=== PATIENT | male | born 1955 | race Caucasian/White ===

== ENCOUNTER 2020-12-31 05:43 | Outpatient (CLI) | payer MEDICARE ==
[~2020-12-31] VITALS: Ht 175.3 cm; Wt 106.7 kg
[2020-12-31] MEDS ORDERED: ROSU40TA23 PO (09:07)
[2020-12-31] MEDS ORDERED: METF-397 PO (09:07)
[2020-12-31] MEDS ORDERED: GLUC-235 PO (09:07)
[2020-12-31] MEDS ORDERED: LISI1TAB46 PO (09:07)
[2020-12-31] MEDS ORDERED: LEVO150C4 PO (09:07)
[2020-12-31] MEDS ORDERED: TMSL.4C PO (09:07)
[2020-12-31] MEDS ORDERED: NAPR-1067 PO (09:07)
[2020-12-31] MEDS ORDERED: CHOL50005 PO (09:07)
== END 2020-12-31 09:14 | disposition home or self-care (01) ==
LOC: PREOP 05:43
PROVIDERS: ATTEND Urology
DX: Z01.818 Encounter for other preprocedural examination (principal)

== ENCOUNTER 2021-01-02 06:30 | Day surgery (SDC) | payer MEDICARE, OTHER ==
[2021-01-02] VITALS (12 sets, daily range): BP systolic 87–162; BP diastolic 66–113
[~2021-01-02] VITALS: Ht 175.3 cm; Wt 106.7 kg
[~2021-01-02 06:30] MED LIST: CHOL50005 PO; GLUC-235 PO; LEVO150C4 PO; LISI1TAB46 PO; METF-397 PO; NAPR-1067 PO; ROSU40TA23 PO; TMSL.4C PO
[2021-01-02] MEDS ORDERED: MIDAZOLAM 2 MG/2 ML (VERSED) VIAL IV ONE (07:00)
[2021-01-02] MEDS ORDERED: LACTATED RINGERS 1,000 ML IV PRN (07:00)
[2021-01-02] MEDS ORDERED: cefTRIAXone 1,000 MG in WATER (STERILE) FOR INJECTION 10 ML IV ONE (07:00)
--- NOTE | 2021-01-02 07:00 | Progress Note-Pre Operative ---
Pre-Operative Progress Note H&P Reviewed The H&P was reviewed, patient examined and no changes noted. Date Seen by Provider: Jan 02, 2021 Time Seen by Provider: 06:59 Date H&P Reviewed: Jan 02, 2021 Time H&P Reviewed: 06:59 Pre-Operative Diagnosis: BPH WITH PROSTATISM REFRACTORY TO MEDICAL TREATMENT ANN QUICK MD Jan 02, 2021 07:00
--- NOTE | 2021-01-02 07:06 | Progress Note-Post Operative ---
Post-Operative Progess Note Surgeon (s)/Health Informatics Advisor (s) Surgeon ANN QUICK MD Health Informatics Advisor: NONE Pre-Operative Diagnosis BPH WITH PROSTATISM REFRACTORY TO MEDICAL TREATMENT Post-Operative Diagnosis SAME Procedure & Operative Findings Date of Procedure 01/02/21 Procedure Performed/Findings UROLIFT IMPLANTS Anesthesia Type GENERAL Estimated Blood Loss Estimated blood loss (mL): NEGLIGIBLE Specimens/Packing Specimens Removed NONE Packing: NONE ANN QUICK MD Jan 02, 2021 07:06
--- NOTE | 2021-01-02 07:11 | Discharge Inst-Urology ---
Discharge Inst-Urology Reconcile Patient Problems Problems Reviewed?: Yes Final Diagnosis BPH WITH PROSTATISM REFRACTORY TO MEDICAL TREATMENT Patient Instructions/Follow Up Plan/Assessment/Instructions Discharge with dumont catheter and leg bag day time and large bag night time with instructions Come to office tomorrow 9am to ETHEL Dumont Please make appointment to been seen in office in 2 weeks to see me . Rest till then Keep bowels soft and moving Showers, no bath Increase oral fluids for 48 hours and then as needed. Diet as tolerated. If questions or concerns contact your physician Or seek help at emergency department. ANN QUICK MD Jan 02, 2021 07:10
[2021-01-02] MEDS ORDERED: fentaNYL INJ 100 MCG/2 ML AMP ONE ×2 (07:13→09:07)
[2021-01-02] MEDS ORDERED: ONDANSETRON 4 MG/2 ML (SDV) Z0FRAN ONE (07:13)
[2021-01-02] MEDS ORDERED: LIDOCAINE PF 2% 5 ML (XYLOCAINE) VIAL ONE (07:13)
[2021-01-02] MEDS ORDERED: SEVOFLURANE (ULTANE) 15 ML INHAL SOLN ONE ×2 (07:13→07:19)
[2021-01-02] MEDS ORDERED: proPOfol 200 MG/20 ML (DIPRIVAN) VIAL IV ONE (07:13)
[2021-01-02] MEDS ORDERED: MIDAZOLAM 2 MG/2 ML (VERSED) VIAL ONE (07:46)
[2021-01-02] MEDS ORDERED: PHEN-640 PO (08:02)
[2021-01-02] MEDS ORDERED: SULF1TAB38 PO (08:02)
--- NOTE | 2021-01-02 08:38 | Anesthesia-General Post-Op ---
General Patient Condition Mental Status/LOC: Same as Preop Cardiovascular: Satisfactory Nausea/Vomiting: Absent Respiratory: Satisfactory Pain: Controlled Complications: Absent Post Op Complications Complications None Follow Up Care/Instructions Patient Instructions None needed. Anesthesia/Patient Condition Patient Condition Patient is doing well, no complaints, stable vital signs, no apparent adverse anesthesia problems. No complications reported per nursing. WINSOME LIEBERMAN CRNA Jan 02, 2021 08:38
[2021-01-02] MEDS ORDERED: morphine INJ 10 MG/ML 1ML (SYR OR VIAL) IVP ONE (08:45)
[2021-01-02] MEDS ORDERED: PROMETHAZINE INJ 25 MG/ML (PHENERGAN) AMP IVP ONE (08:45)
[2021-01-02] MEDS ORDERED: MEPERIDINE (DEMEROL) INJ 50 MG/ML IVP ONE (08:45)
[2021-01-02] MEDS ORDERED: KETOROLAC 30 MG/ML VIAL ONE (09:00)
[2021-01-02] MEDS ORDERED: KETO10TA PO (09:24)
--- NOTE | 2021-01-02 10:08 | Progress Note ---
Standard Progress Note Progress Notes/Assess & Plan Time Seen by a Provider: 09:15 Final Diagnosis Pt woke up in recovery room with what initially appeared to be emergence delirium. Pt thrashing around in cart, screaming for Earnest, followed by just kill me over and over. Pt uncooperative, violent, disruptive, and a danger to himself and staff. After further investigation it appears pt has a low pain threshold and self control. Pain level assessed by nurses and medications given in a timely and appropriate manner after wrestling pt to keep safely in cart and without self harm. Pt later apologized to staff for his inappropriate behavior. WINSOME LIEBERMAN CRNA Jan 02, 2021 10:08
--- NOTE | 2021-01-02 13:13 | OPERATIVE REPORT ---
DATE OF SERVICE: 01/02/2021 PREOPERATIVE DIAGNOSIS: Benign prostatic hyperplasia with prostatism refractory to medical treatment. POSTOPERATIVE DIAGNOSIS: Benign prostatic hyperplasia with prostatism refractory to medical treatment. OPERATION PERFORMED: UroLift implants. SURGEON: Jadon Quick MD ANESTHESIA: General. COMPLICATIONS: None. DESCRIPTION OF PROCEDURE: Under satisfactory general anesthesia, the patient in lithotomy position, genitalia were prepped and draped in the usual sterile fashion. Special UroLift scope was inserted using camera. Again, visualized the lateral lobes of the prostate meeting the midline causing bladder neck obstruction and trabeculations. I went ahead and placed four UroLift implants, starting first on the right and left side about 2 cm from the bladder neck using the described technique. There was good separation of the lateral lobe and then again at the level of the veru and again good separation and the last picture of the channel was very good. There was some bleeding from the prostate, so I elected to insert an 18-[place] Vaca catheter at the end of the procedure and will decide on it when the patient recovers, we are sending him home with it or not and this was explained to him prior to surgery. Estimated blood loss was negligible. The patient tolerated the procedure and anesthesia well and was sent to recovery room in stable condition. Job ID: [id number] DocumentID: [id number] Dictated Date: 01/02/2021 08:39:28 Fur Pointer Date: 01/02/2021 13:12:37 Dictated By: JADON QUICK MD
== END 2021-01-02 10:35 | disposition home or self-care (01) ==
LOC: SDC 06:30
PROVIDERS: ATTEND Urology
DX: N40.0 Benign prostatic hyperplasia without lower urinary tract symptoms (principal); E11.9 Type 2 diabetes mellitus without complications; E03.9 Hypothyroidism, unspecified; I10 Essential (primary) hypertension; Z79.899 Other long term (current) drug therapy; Z79.890 Hormone replacement therapy; Z79.84 Long term (current) use of oral hypoglycemic drugs
CPT/HCPCS: 52441; 52442 ×3; 82947; 86850; 86900; 86901; 87081; L8699

== ENCOUNTER 2021-01-02 12:49 | Emergency (ER) | payer MEDICARE, OTHER ==
[~2021-01-02] VITALS: Ht 175 cm; Wt 107.0 kg
[~2021-01-02 12:49] MED LIST changes: +KETO10TA PO; +PHEN-640 PO; +SULF1TAB38 PO
[2021-01-02] MEDS ORDERED: LIDOCAINE UROJET 2% GEL 10 ML PKG TOP ONE (13:15)
[2021-01-02] MEDS ORDERED: fentaNYL INJ 100 MCG/2 ML AMP IVP ONE (13:15)
--- NOTE | 2021-01-02 13:52 | ED GU-Female ---
General Chief Complaint: - Reproductive Stated Complaint: S/P UROLIFT TODAY,N/V,DIFFICULTY URINATING Nursing Triage Note: Pt ambulatory to ED with c/o being unable to urinate. Pt reports having a urolift this morning and state he has the urge, but has not been able to urinate since. Pt reports discomfort he rates 3/10. Source: patient Exam Limitations: no limitations History of Present Illness Date Seen by Provider: Jan 02, 2021 Time Seen by Provider: 13:15 Initial Comments To ER with inability to urinate. He had a UroLift procedure by Dr. Benavidez this morning at about 8:00 here. He had a catheter in but was unable to tolerate it so it was removed prior to discharge. He has been unable to urinate since then feels the urge to do so. Timing/Duration: constant Severity/Quality: moderate Location: suprapubic Radiation: none Activities at Onset: none Prior Genitourinary Problems: none Allergies and Home Medications Allergies Coded Allergies: ondansetron (Verified Allergy, Severe, 12/31/20) PT. STATES THIS MEDICATION CAUSES BLISTERS iodine (Verified Allergy, Intermediate, Rash, 12/31/20) oxycodone (Verified Allergy, Intermediate, 12/31/20) PT. STATES THIS MEDICATION CAUSES DEPRESSION Patient Home Medication List Home Medication List Reviewed: Yes Cholecalciferol (Vitamin D3) (D3-50) 1,250 Mcg Capsule, 1,250 MCG PO DAILY, (Reported) Entered as Reported by: MALIHA DURAN on 12/31/20906 Glucos Sul 2Kcl/MSM/Chond/C/Mn (Glucosamine Chondroitin Cap) 1 Each Capsule, 2 EACH PO DAILY, (Reported) Entered as Reported by: MALIHA DURAN on 12/31/20906 Ketorolac Tromethamine (Ketorolac Tromethamine) 10 Mg Tablet, 10 MG PO Q6H Prescribed by: RICHAR ABREU on 01/02/21 09 Levothyroxine Sodium (Levothyroxine) 150 Mcg Capsule, 150 MCG PO DAILY, (Reported) Entered as Reported by: MALIHA DURAN on 12/31/20906 Lisinopril/Hydrochlorothiazide (Lisinopril-Hctz 20-12.5 mg Tab) 1 Each Tablet, 1 EACH PO DAILY, (Reported) Entered as Reported by: MALIHA DURAN on 12/31/20906 Metformin HCl (Metformin HCl) 500 Mg Tablet, 500 MG PO BID, (Reported) Entered as Reported by: MALIHA DURAN on 12/31/20906 Naproxen Sodium (Naproxen Sodium) 550 Mg Tablet, 550 MG PO DAILY, (Reported) Entered as Reported by: MALIHA DURAN on 12/31/20906 Phenazopyridine HCl (Pyridium) 200 Mg Tablet, 1 TAB PO TID Prescribed by: RICHAR ABREU on 01/02/21801 Rosuvastatin Calcium (Rosuvastatin Calcium) 40 Mg Tablet, 40 MG PO DAILY, (Reported) Entered as Reported by: MALIHA DURAN on 12/31/20906 Sulfamethoxazole/Trimethoprim (Bactrim Ds Tablet) 1 Each Tablet, 1 EACH PO BID Prescribed by: RICHAR ABREU on 01/02/21801 Tamsulosin HCl (Flomax) 0.4 Mg Cap, 2 TAB PO DAILY, (Reported) Entered as Reported by: MALIHA DURAN on 12/31/20906 Review of Systems Review of Systems Constitutional: see HPI EENTM: see HPI Respiratory: no symptoms reported Cardiovascular: no symptoms reported Genitourinary: see HPI Musculoskeletal: no symptoms reported Skin: no symptoms reported Psychiatric/Neurological: No Symptoms Reported Endocrine: No Symptoms Reported Past Qdarbhi-Zgcufh-Yinmwr Hx Patient Social History Tobacco Use?: No Use of E-Cig and/or Vaping dev: No Substance use?: No Alcohol Use?: No Pt feels they are or have been: No Immunizations Up To Date Influenza Vaccine Up-to-Date: No; Not Current First/Initial COVID19 Vaccinat: July 2020 Second COVID19 Vaccination Ted: JULY 2020 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: [employer] Seasonal Allergies Seasonal Allergies: Yes Past Medical History Surgeries: Yes Abdominal, Orthopedic Respiratory: No Cardiac: Yes Hypertension Neurological: No Genitourinary: Yes Benign Prostatic Hyperpl, Kidney Stones Gastrointestinal: No Musculoskeletal: Yes Arthritis Endocrine: Yes Hypothyroidsim, Diabetes, Non-Insulin dep HEENT: Yes (WEARS GLASSES) Loss of Vision: Denies Hearing Impairment: Denies Cancer: No Psychosocial: Yes (GOING THROUGH A DIVORCE) Sleep Difficulties, Anxiety, Depression Integumentary: No Blood Disorders: No Adverse Reaction/Blood Tranf: No (N/A) Physical Exam Vital Signs Vital Signs - First Documented 01/02/21 12:55 Temp 36.9 Pulse 77 Resp 18 B/P (MAP) 140/75 (96) Pulse Ox 98 O2 Delivery Room Air Capillary Refill : Less Than 3 Seconds Height, Weight, BMI Height: '" Weight: lbs. oz. kg; 34.00 BMI Method: General Appearance: WD/WN, no apparent distress Respiratory: no respiratory distress, no accessory muscle use Gastrointestinal: normal bowel sounds, soft, tenderness (Suprapubic) Extremities: normal range of motion, non-tender Neurologic/Psychiatric: alert, normal mood/affect, oriented x 3 Skin: normal color, warm/dry Progress/Results/Core Measures Suspected Sepsis SIRS Temperature: Pulse: 77 Respiratory Rate: 18 Blood Pressure 140 /75 Mean: 96 Results/Orders My Orders Orders - ASHOK GREENFIELD APRN Ed Iv/Invasive Line Start (01/02/21 13:10) Fentanyl Inj (Sublimaze Injection) (01/02/21 13:15) Lidocaine 2% (Urojet) (Xylocaine Urojet) (01/02/21 13:15) Vaca Cath (01/02/21 13:10) Medications Given in ED Current Medications Medications Dose Ordered Sig/Derrick Route Start Time Stop Time Status Last Admin Dose Admin Fentanyl Citrate 50 mcg ONCE ONCE IVP 01/02/21 13:15 01/02/21 13:16 DC 01/02/21 13:18 50 MCG Lidocaine HCl 10 ml ONCE ONCE TOP 01/02/21 13:15 01/02/21 13:16 DC 01/02/21 13:18 10 ML Vital Signs/I&O 01/02/21 12:55 Temp 36.9 Pulse 77 Resp 18 B/P (MAP) 140/75 (96) Pulse Ox 98 O2 Delivery Room Air Capillary Refill : Less Than 3 Seconds Blood Pressure Mean: 96 Departure Communication (Admissions) 5876-We did a Urojet syringe as well as 50 mcg of fentanyl and then placed a 16 [place] Vaca catheter with ease. Immediate return of about 5200 mL of dark brown urine. No clots. Notified Dr. Benavidez. He will see the patient Thursday morning at 9 AM for catheter removal would like to use Pyridium around the clock instead of on a as needed basis. He provided the patient with a prescription for Pyridium, Bactrim, Toradol this morning. Impression Primary Impression: BPH (benign prostatic hyperplasia) Additional Impression: Urinary retention Disposition: HOME, SELF-CARE Condition: Stable Departure-Patient Inst. Decision time for Depature: 13:50 Referrals: LEROY ROSENTHAL DO (PCP/Family) Primary Care Physician Patient Instructions: Urinary Retention Add. Discharge Instructions: 1. Use the phenazopyridine 3 times a day on schedule rather than as needed. Follow-up with Dr. Benavidez Thursday morning at 9 AM for catheter removal. Take medication as directed otherwise. All discharge instructions reviewed with patient and/or family. Voiced understanding. ASHOK GREENFIELD LIFT DRIVER Jan 02, 2021 13:52
[2021-01-02] MEDS ORDERED: PROMETHAZINE INJ 25 MG/ML (PHENERGAN) AMP IVP ONE (14:00)
[2021-01-02 14:47] VITALS: BP 130/82
== END 2021-01-02 14:45 | disposition home or self-care (01) ==
LOC: EDUNIT# 12:49 → ER 12:52
DX: N40.0 Benign prostatic hyperplasia without lower urinary tract symptoms (principal); R33.9 Retention of urine, unspecified; I10 Essential (primary) hypertension; E11.9 Type 2 diabetes mellitus without complications; E03.9 Hypothyroidism, unspecified; Z79.84 Long term (current) use of oral hypoglycemic drugs; Z79.890 Hormone replacement therapy; Z79.899 Other long term (current) drug therapy
CPT/HCPCS: 51702

== ENCOUNTER 2023-01-08 10:03 | Emergency (ER) | payer MEDICARE, OTHER ==
[2023-01-08] MEDS: fentaNYL INJECTION 100 MCG/2 ML VIAL IVP STA ×2 (10:07→10:20)
[2023-01-08] MEDS: NS IV 1000 ML 1,000 ML IV ONE (10:13)
[2023-01-08] MEDS ORDERED: KETAMINE 50 MG/5 ML SYRINGE ONE (10:23)
[2023-01-08 10:24] LABS: BASOPHILS # (AUTO) 0.1 10^3/uL (0.0-0.1); BASOPHILS % (AUTO) 1 % (0-10); EOSINOPHILS # (AUTO) 0.1 10^3/uL (0.0-0.3); EOSINOPHILS % (AUTO) 1 % (0-10); HEMATOCRIT 46 % (40-54); HEMOGLOBIN 15.1 g/dL (13.3-17.7); LYMPHOCYTES # (AUTO) 2.6 10^3/uL (1.0-4.0); LYMPHOCYTES % (AUTO) 31 % (12-44); MEAN CORPUSCULAR HEMOGLOBIN 33 pg (25-34); MEAN CORPUSCULAR HGB CONC 33 g/dL (32-36); MEAN CORPUSCULAR VOLUME 101 fL (80-99); MEAN PLATELET VOLUME 9.9 fL (9.0-12.2); MONOCYTES # (AUTO) 0.9 10^3/uL (0.0-1.0); MONOCYTES % (AUTO) 11 % (0-12); NEUTROPHILS # (AUTO) 4.8 10^3/uL (1.8-7.8); NEUTROPHILS % (AUTO) 56 % (42-75); PLATELET COUNT 263 10^3/uL (130-400); WHITE BLOOD COUNT 8.5 10^3/uL (4.3-11.0)
[2023-01-08 10:31] LABS: ALBUMIN 3.6 GM/DL (3.2-4.5); POTASSIUM 3.7 MMOL/L (3.6-5.0)
[2023-01-08 10:32] LABS: CALCIUM 7.5 MG/DL (8.5-10.1)
[2023-01-08 10:33] LABS: TOTAL PROTEIN 6.3 GM/DL (6.4-8.2)
--- NOTE | 2023-01-08 10:34 | Diagnostic Imaging Report ---
INDICATION: Epigastric pain EXAM: Portable chest at 10:32 AM There are calcified granulomas in the lower lungs bilaterally. There are no infiltrates, effusions or pneumothoraces. There is no hilar or mediastinal lymphadenopathy. There is no intraperitoneal free air. There is gaseous distention of the colon. IMPRESSION: No acute abnormalities in the chest. Dictated by: Dictated on workstation # [id number]
[2023-01-08 10:35] LABS: BILIRUBIN,TOTAL 0.4 MG/DL (0.1-1.0)
[2023-01-08 10:37] LABS: CREATININE SERUM 1.13 MG/DL (0.60-1.30)
[2023-01-08 10:40] LABS: MAGNESIUM 1.8 MG/DL (1.6-2.4)
--- NOTE | 2023-01-08 10:50 | ED Abdominal Pain ---
General Chief Complaint: Post OP Complications/Pain Stated Complaint: POST OP PAIN Nursing Triage Note: pt to ed via ems from surgery center post colonoscopyfor lower abd pain Source of Information: Patient Exam Limitations: No Limitations History of Present Illness Date Seen by Provider: Jan 08, 2023 Time Seen by Provider: 10:10 Initial Comments Here by EMS from postop, patient had persistent and worsening pain. He was given [facility] after colonoscopy with report of severe abdominal pain. Versed or Ativan x2 and this did not help. They were very concerned about narcotic pain medicine due to concerns for bowel relaxation and concerns for perforation given his pain. Ultimately EMS was called and they transferred here for further evaluation. There was concerns for bowel perforation by symptoms but apparently the procedure was rather benign and went well without complications. EMS transported. Patient has IV to the right hand from the surgery center. EMS reports normal vital signs but the patient was in severe pain. Patient has not passed gas yet. He denies nausea or vomiting or chest pain. He is complaining of allover abdominal cramping and pain that is severe. Timing/Duration: 1/2 Hour, Getting Worse Severity/Quality: Severe, Aching, Cramping Location: Generalized Abdomen Radiation: No Radiation Activities at Onset: Other (Postoperative colonoscopy) Associated Symptoms: No Back Pain, No Chest Pain, No Fever/Chills, No Nausea/Vomiting, No Shortness of Air; Swelling/Mass in Abdomen; No Weakness Allergies and Home Medications Allergies Coded Allergies: ondansetron (Verified Allergy, Severe, 12/31/20) PT. STATES THIS MEDICATION CAUSES BLISTERS iodine (Verified Allergy, Intermediate, Rash, 12/31/20) oxycodone (Verified Allergy, Intermediate, 12/31/20) PT. STATES THIS MEDICATION CAUSES DEPRESSION Patient Home Medication List Home Medication List Reviewed: Yes Cholecalciferol (Vitamin D3) (D3-50) 1,250 Mcg Capsule, 1,250 MCG PO DAILY, (Reported) Entered as Reported by: MALIHA DURAN on 12/31/20 09 Glucos Sul 2Kcl/MSM/Chond/C/Mn (Glucosamine Chondroitin Cap) 1 Each Capsule, 2 EACH PO DAILY, (Reported) Entered as Reported by: MALIHA DURAN on 12/31/20 09 Ketorolac Tromethamine (Ketorolac Tromethamine) 10 Mg Tablet, 10 MG PO Q6H Prescribed by: RICHAR ABREU on 01/02/21923 Levothyroxine Sodium (Levothyroxine) 150 Mcg Capsule, 150 MCG PO DAILY, (Reported) Entered as Reported by: MALIHA DURAN on 12/31/20906 Lisinopril/Hydrochlorothiazide (Lisinopril-Hctz 20-12.5 mg Tab) 1 Each Tablet, 1 EACH PO DAILY, (Reported) Entered as Reported by: MALIHA DURAN on 12/31/20906 Metformin HCl (Metformin HCl) 500 Mg Tablet, 500 MG PO BID, (Reported) Entered as Reported by: MALIHA DURAN on 12/31/20906 Naproxen Sodium (Naproxen Sodium) 550 Mg Tablet, 550 MG PO DAILY, (Reported) Entered as Reported by: MALIHA DURAN on 12/31/20906 Phenazopyridine HCl (Pyridium) 200 Mg Tablet, 1 TAB PO TID Prescribed by: RICHAR ABREU on 01/02/21801 Rosuvastatin Calcium (Rosuvastatin Calcium) 40 Mg Tablet, 40 MG PO DAILY, (Reported) Entered as Reported by: MALIHA DURAN on 12/31/20906 Sulfamethoxazole/Trimethoprim (Bactrim Ds Tablet) 1 Each Tablet, 1 EACH PO BID Prescribed by: RICHAR ABREU on 01/02/21801 Tamsulosin HCl (Flomax) 0.4 Mg Cap, 2 TAB PO DAILY, (Reported) Entered as Reported by: MALIHA DURAN on 12/31/20906 Review of Systems Review of Systems Constitutional: No chills, No fever Respiratory: Denies Shortness of Air Cardiovascular: Denies Chest Pain Gastrointestinal: Abdominal Pain; Denies Nausea Psychiatric/Neurological: Anxiety Past Cetgbnx-Zvboad-Bapfdy Hx Patient Social History Tobacco Use?: No Substance use?: No Alcohol Use?: Yes Alcohol Frequency: Daily Immunizations Up To Date First/Initial COVID19 Vaccinat: July 2020 Second COVID19 Vaccination Ted: JULY 2020 Third COVID19 Vaccination Date: JULY 2020 Seasonal Allergies Seasonal Allergies: Yes Past Medical History Surgeries: Yes Abdominal, Orthopedic Respiratory: No Cardiac: Yes Hypertension Neurological: No Genitourinary: Yes Benign Prostatic Hyperpl, Kidney Stones Gastrointestinal: No Musculoskeletal: Yes Arthritis Endocrine: Yes Hypothyroidsim, Diabetes, Non-Insulin dep HEENT: Yes (WEARS GLASSES) Loss of Vision: Denies Hearing Impairment: Denies Cancer: No Psychosocial: Yes (GOING THROUGH A DIVORCE) Sleep Difficulties, Anxiety, Depression Integumentary: No Blood Disorders: No Adverse Reaction/Blood Tranf: No (N/A) Family Medical History Reviewed Nursing Family Hx Physical Exam Vital Signs Vital Signs - First Documented 01/08/23 10:07 Temp 36.6 Pulse 94 Resp 22 B/P (MAP) 107/93 (98) Pulse Ox 98 Capillary Refill : Height/Weight/BMI Height: '" Weight: lbs. oz. kg; 34.00 BMI Method: General Appearance: WD/WN, severe distress HEENT: PERRL/EOMI, pharynx normal Neck: full range of motion, supple Respiratory: lungs clear, normal breath sounds Cardiovascular: regular rate, rhythm, no murmur Gastrointestinal: distended, other (Abdomen is not specifically tender anywhere but he is complaining of pain everywhere within the abdomen) Extremities: non-tender, normal inspection Back: normal inspection, no CVA tenderness, no vertebral tenderness Neurologic/Psychiatric: alert, oriented x 3 Skin: normal color, warm/dry Progress/Results/Core Measures Results/Orders Lab Results Laboratory Tests Test 01/08/23 10:11 Range/Units White Blood Count 8.5 4.3-11.0 10^3/uL Red Blood Count 4.58 4.30-5.52 10^6/uL Hemoglobin 15.1 13.3-17.7 g/dL Hematocrit 46 40-54 % Mean Corpuscular Volume 101 H 80-99 fL Mean Corpuscular Hemoglobin 33 25-34 pg Mean Corpuscular Hemoglobin Concent 33 32-36 g/dL Red Cell Distribution Width 13.8 10.0-14.5 % Platelet Count 263 130-400 10^3/uL Mean Platelet Volume 9.9 9.0-12.2 fL Immature Granulocyte % (Auto) 0 % Neutrophils (%) (Auto) 56 42-75 % Lymphocytes (%) (Auto) 31 12-44 % Monocytes (%) (Auto) 11 0-12 % Eosinophils (%) (Auto) 1 0-10 % Basophils (%) (Auto) 1 0-10 % Neutrophils # (Auto) 4.8 1.8-7.8 10^3/uL Lymphocytes # (Auto) 2.6 1.0-4.0 10^3/uL Monocytes # (Auto) 0.9 0.0-1.0 10^3/uL Eosinophils # (Auto) 0.1 0.0-0.3 10^3/uL Basophils # (Auto) 0.1 0.0-0.1 10^3/uL Immature Granulocyte # (Auto) 0.0 0.0-0.1 10^3/uL Sodium Level 141 135-145 MMOL/L Potassium Level 3.7 3.6-5.0 MMOL/L Chloride Level 113 H 98-107 MMOL/L Carbon Dioxide Level 15 L 21-32 MMOL/L Anion Gap 13 5-14 MMOL/L Blood Urea Nitrogen 16 7-18 MG/DL Creatinine 1.13 0.60-1.30 MG/DL Estimat Glomerular Filtration Rate 71 BUN/Creatinine Ratio 14 Glucose Level 105 70-105 MG/DL Calcium Level 7.5 L 8.5-10.1 MG/DL Corrected Calcium 7.8 L 8.5-10.1 MG/DL Magnesium Level 1.8 1.6-2.4 MG/DL Total Bilirubin 0.4 0.1-1.0 MG/DL Aspartate Amino Transf (AST/SGOT) 16 5-34 U/L Alanine Aminotransferase (ALT/SGPT) 17 0-55 U/L Alkaline Phosphatase 61 40-136 U/L C-Reactive Protein High Sensitivity 0.30 0.00-0.50 MG/DL Total Protein 6.3 L 6.4-8.2 GM/DL Albumin 3.6 3.2-4.5 GM/DL My Orders Orders - ERIKA LUQUE MD Cbc And Automated Diff (01/08/23 10:11) Comprehensive Metabolic Panel (01/08/23 10:11) Hs C Reactive Protein (01/08/23 10:11) Magnesium (01/08/23 10:11) Ed Iv/Invasive Line Start (01/08/23 10:11) Ns Iv 1000 Ml (Ns Iv 1000 Ml) (01/08/23 10:15) Fentanyl Injection (Fentanyl Injection (01/08/23 10:11) Ct Abdomen/Pelvis Wo (01/08/23 10:11) Fentanyl Injection (Fentanyl Injection (01/08/23 10:15) Chest 1 View, Ap/Pa Only (01/08/23 10:21) Ketamine Syringe (Ketamine Syringe) (01/08/23 10:23) Ketamine Syringe (Ketamine Syringe) (01/08/23 11:00) Medications Given in ED Current Medications Medications Dose Ordered Sig/Derrick Route Start Time Stop Time Status Last Admin Dose Admin Ketamine HCl 35 mg ONCE ONCE IV 01/08/23 11:00 01/08/23 11:01 DC 01/08/23 11:03 35 MG Sodium Chloride 1,000 ml @ 0 mls/hr Q0M ONCE IV 01/08/23 10:15 01/08/23 10:16 DC 01/08/23 10:13 999 MLS/HR Vital Signs/I&O 01/08/23 10:07 Temp 36.6 Pulse 94 Resp 22 B/P (MAP) 107/93 (98) Pulse Ox 98 Blood Pressure Mean: 98 Progress Progress Note : Progress Note Seen and evaluated on arrival by EMS. Fentanyl 75 mcg IV ordered. We will get basic labs including CBC and CMP. I did speak with Dr. Roberts, surgeon on-call at 1020. We will get chest x-ray and look for free air with anticipation of CT abdomen and pelvis after if we can do that. 1026: Chest x-ray reviewed by me and no obvious findings of free air noted. We will pursue CT abdomen and pelvis without contrast as he has contrast allergy. Repeat fentanyl 100 mcg IV given and ultimately we initiated ketamine up to 50 mg IV and stopped at 35 mg IV when we achieved pain relief. Patient to CT. Differential diagnosis includes: Perforation, ileus, postoperative intracolonic air causing pain 1100: Overall much improved. He has started passing some gas. Dr. Roberts did accompany patient to CT and no obvious significant abnormalities noted. I did review CT which does show significant amount of intracolonic air consistent with postop colonoscopy but I do not see any free air pending radiology report. Patient is doing much better. CBC reviewed and does not show any significant abnormality. CMP reviewed and there is slightly low calcium but otherwise no significant abnormality. We will monitor the patient and see how he does. 1305: I have spoken with Dr. Laureano, patient's surgeon from the surgery center that did colonoscopy. We reviewed current findings. He stated the colonoscopy was overall fairly benign and not difficult. He appreciated our help. Patient has tolerated sips well, has passed gas and pain is resolved. He feels comfortable going home. I think he has recovered well from the medications that we have given as well as postoperatively and I believe discharge home is reasonable. Discharged home with return precautions. Patient verbalized understanding instructions and agreement with plan. Diagnostic Imaging Diagonstic Imaging: Xray Plain Films/CT/US/NM/MRI: chest Comments [facility] [place] [place] NAME: NEVA MORRIS [facility] REC#: [id number] PT STATUS: REG ER : 1955 PHYSICIAN: ERIKA LUQUE MD ADMIT DATE: 01/08/23/ER Signed Date of Exam:01/08/23 CHEST 1 VIEW, AP/PA ONLY INDICATION: Epigastric pain EXAM: Portable chest at 10:32 AM There are calcified granulomas in the lower lungs bilaterally. There are no infiltrates, effusions or pneumothoraces. There is no hilar or mediastinal lymphadenopathy. There is no intraperitoneal free air. There is gaseous distention of the colon. IMPRESSION: No acute abnormalities in the chest. Dictated by: Dictated on workstation # [id number] Dict: 01/08/23 1030 Trans: 01/08/23 105 [facility] [id number] Interpreted by: ERIKA BRYANT MD Electronically signed by: ERIKA BRYANT MD 01/08/23 1057 Diagonstic Imaging: CT Plain Films/CT/US/NM/MRI: abdomen, pelvis Comments [facility] [place], [place] NAME: NEVA MORRIS [facility] REC#: [id number] PT STATUS: REG ER : 1955 PHYSICIAN: ERIKA LUQUE MD ADMIT DATE: 01/08/23/ER Draft Date of Exam:01/08/23 CT ABDOMEN/PELVIS WO PROCEDURE: CT abdomen and pelvis without contrast. TECHNIQUE: Multiple contiguous axial images were obtained through the abdomen and pelvis without the use of intravenous contrast. Auto Exposure Controls were utilized during the CT exam to meet ALARA standards for radiation dose reduction. INDICATION: Abdominal pain post colonoscopy There are no prior studies available for comparison. By history the patient underwent colonoscopy this morning. The plastics bench mechanic film reveals that there is marked distention of the colon by gas consistent with the patient's history of colonoscopy. However this exam there is no evidence for a pneumoperitoneum. There is an area of streak artifact about the splenic flexure of the colon. There is no radiopaque density in this area on the plastics bench mechanic film to suggest a stent or surgical clips. Correlation with the patient's history would be recommended. There is diverticulosis of the sigmoid colon but there is no sign of acute diverticulitis. There are also nonobstructive calculi within both kidneys but there is no evidence for obstruction of either collecting system. The appendix is not well-visualized but there are no indirect signs of acute appendicitis. There is no pelvic mass or free fluid collection evident. Surgical clips are evident within the prostate gland. The prostate gland does not seem to be enlarged. The urinary bladder is grossly unremarkable. The liver, spleen, pancreas, adrenals, gallbladder, aorta and inferior vena cava show no sign of an acute abnormality. The stomach is only partially distended and filled with fluid and difficult to assess. The lung bases are clear. There is a 1 cm granuloma near the left heart border. The bone windows are unremarkable for a fracture or for a destructive lesion. There is fairly severe degenerative disc and bony disease at L3-L4, L4-L5 and L5-S1. IMPRESSION: 1. The colon is distended by gas consistent with patient's history of a recent colonoscopy. However there is no sign of a pneumoperitoneum or of an acute abnormality. 2. There is diverticulosis of the sigmoid colon without evidence for acute diverticulitis. 3. There are nonobstructive calculi involving the kidneys. 4. There is no acute abnormality of the abdomen or pelvis noted. 5. The streak artifact related to splenic flexure of the colon does raise the question of prior surgical procedure in this area. Correlation with patient's history are recommended. These results were discussed with Dr. Roberts. Dictated on workstation # [id number] Dict: 01/08/23 1050 Trans: 01/08/23 1128 [facility] [id number] Interpreted by: JULIANNE ROSAS MD Electronically signed by: Departure Impression Primary Impression: Postoperative pain Disposition: 01 HOME, SELF-CARE Condition: Improved Departure-Patient Inst. Decision time for Depature: 13:13 Referrals: LEROY ROSENTHAL DO (PCP/Family) Primary Care Physician Patient Instructions: Colonoscopy (DC), Postoperative Pain (DC) Add. Discharge Instructions: Continue discharge instructions as given by your primary surgeon that did the colonoscopy. Return for worse pain, fever, vomiting, weakness, breathing pro blems or other concerns as needed. ERIKA LUQUE MD Jan 08, 2023 10:50
[2023-01-08] MEDS: KETAMINE 50 MG/5 ML SYRINGE IV ONE (11:03)
--- NOTE | 2023-01-08 11:28 | Diagnostic Imaging Report ---
PROCEDURE: CT abdomen and pelvis without contrast. TECHNIQUE: Multiple contiguous axial images were obtained through the abdomen and pelvis without the use of intravenous contrast. Auto Exposure Controls were utilized during the CT exam to meet ALARA standards for radiation dose reduction. INDICATION: Abdominal pain post colonoscopy There are no prior studies available for comparison. By history the patient underwent colonoscopy this morning. The assistant project engineer film reveals that there is marked distention of the colon by gas consistent with the patient's history of the recent colonoscopy. However there is no evidence for a pneumoperitoneum. There is an area of streak artifact about the splenic flexure of the colon. There is no radiopaque density in this area on the assistant project engineer film to suggest a stent or surgical clips. Correlation with the patient's history would be recommended. There is diverticulosis of the sigmoid colon but there is no sign of acute diverticulitis. There are also nonobstructive calculi within both kidneys but there is no evidence for obstruction of either collecting system. The appendix is not well-visualized but there are no indirect signs of acute appendicitis. There is no pelvic mass or free fluid collection evident. Surgical clips are evident within the prostate gland. The prostate gland does not seem to be enlarged. The urinary bladder is grossly unremarkable. The liver, spleen, pancreas, adrenals, gallbladder, aorta and inferior vena cava show no sign of an acute abnormality. The stomach is only partially distended and filled with fluid and difficult to assess. The lung bases are clear. There is a 1 cm granuloma near the left heart border. The bone windows are unremarkable for a fracture or for a destructive lesion. There is fairly severe degenerative disc and bony disease at L3-L4, L4-L5 and L5-S1. IMPRESSION: 1. The colon is distended by gas consistent with patient's history of a recent colonoscopy. However there is no sign of a pneumoperitoneum or of an acute abnormality. 2. There is diverticulosis of the sigmoid colon without evidence for acute diverticulitis. 3. There are nonobstructive calculi involving the kidneys. 4. There is no acute abnormality of the abdomen or pelvis noted. 5. The streak artifact related to splenic flexure of the colon does raise the question of prior surgical procedure in this area. Correlation with patient's history are recommended. These results were discussed with Dr. Roberts. Dictated by: Dictated on workstation # [id number]
[2023-01-08 13:21] VITALS: BP 137/84
== END 2023-01-08 13:22 | disposition home or self-care (01) ==
LOC: EDUNIT# 10:03 → ER 10:05
DX: G89.18 Other acute postprocedural pain (principal); R10.9 Unspecified abdominal pain
CPT/HCPCS: 36415; 71045; 74176; 80053; 83735; 85025; 86141